=== PATIENT | male | born 1940 | race Hispanic/Latino ===

== ENCOUNTER 2022-11-18 15:03 | Outpatient (CLI) | payer MEDICARE ==
[~2022-11-18 15:03] MED LIST: Magnevist 469MG/ML 20 ML VIAL ONE
== END 2022-11-18 15:04 | disposition home or self-care (01) ==
LOC: CSHMRI 15:03
PROVIDERS: ATTEND Radiology Radiation Oncology
DX: C61 Malignant neoplasm of prostate (principal)
CPT/HCPCS: 72197; 82565